=== PATIENT | female | born 1935 | race Caucasian/White ===

== ENCOUNTER → 2018-09-04 | Outpatient (CLI) | payer MEDICARE, BC ==
[2017-01-09 16:56] VITALS: BMI 24.4
[~2018-09-04] MED LIST: ALE70 PO; ASPI-715 PO; CEFU250T11 PO; CHOL10005 PO; DAR100 PO; DOCU-202 PO; EZET10TA41 PO; GLUC500C29 PO; IBAN150T6 PO; LEVO25TA56 PO; MULT-820 PO; NIA100 PO; ONDA4TAB PO; OXYC-373 PO; OXYC-865 PO; PER PO; RALO60TA12 PO; SIMV-42 PO; TRIVITAMIN50 ML PO; VITA100014 PO; ZOL5 PO
--- NOTE | 2018-09-04 09:04 | RADIOLOGY IMAGING REPORT ---
FACILITY: [facility] - [place] PATIENT NAME: Kristina Puentes : 1935 MR: [id number] V: [id number] EXAM DATE: ORDERING PHYSICIAN: CHELI LEONARD TECHNOLOG[place] [facility] [place] : 1935 Visit/Account:[id number] Date of Sevice: 09/04/2018 BONE DENSITY Additional Pertinent history: Osteoporosis screening COMPARISON STUDIES: 06/03/2014 FINDINGS: LUMBAR SPINE: The bone mineral density (BMD) measured from L1-L2 correlates with a Z-score of 0.3 and a T-score of -1.5 which is osteopenia as defined by the World Health Organization. The corresponding risk of fract ure in the lumbar spine is increased 3 times compared with a young adult reference population. This v alue has increased by 2.6% since the prior study. More than 5% change is considered significant. HIP: Bone mineral density (BMD) measured in the left total hip correlates with a Z-score of 0.6 and a T-s core of -1.6 which is osteopenia as defined by the World Health Organization. The corresponding risk of fracture in the hip is increased 3-4 times compared with a young adult reference population. Total hip value has decreased by 2.3% since the prior study. More than 5% change is considered significant . Bone mineral density (BMD) measured in the left femoral neck region measures 0.76 g/cm2. IMPRESSION: 1. Lumbar spine: Osteopenia. No significant change. 2. Left hip: Osteopenia. Total hip value has shown no significant change. Left femoral neck: bone mineral density is 0.76 g/cm2 FRAX WHO Fracture Risk Assessment Tool link: http://www.mirian.ac.uk/FRAX/index.jsp The next DEXA scan of this patient should include the following sites: L1-L2 and left hip PLEASE NOTE: 1. The World Health Organization defines low BMD as follows: T-score Normal > -1 Osteopenia -1 to -2.5 Osteoporosis < -2.5 without fractures Established osteoporosis < -2.5 with fractures 2. In general, you may wish to consider: Diagnosis Treatment Follow-up DEXA Normal BMD Prevention 2-3 years Osteopenia Prevention/therapy 1-2 years Osteoporosis Therapy Yearly 3. Fracture risk estimated from the T-score is more accurate for vertebral fractures (often spontaneo us) than for hip fractures. Report Dictated By: Travis Montano MD at 09/04/2018 8:57 AM Report E-Signed By: Travis Montano MD at 09/04/2018 9:00 AM WSN:[id number]
--- NOTE | 2018-09-04 16:50 | RADIOLOGY IMAGING REPORT ---
[place] [facility] [place] NAME: JULIUS ROMO : [id number] MR: [id number] V: [id number] EXAM DATE: ORDERING PHYSICIAN: CHELI LEONARD TECHNOLOGIST: Keyona Ham PROCEDURE:BILATERAL DIGITAL SCREENING MAMMOGRAM WITH CAD ASSISTED INTERPRETATION & 3D TOMOSYNTHESIS COMPARISON:Prior mammograms 06/03/14, 03/01/12. INDICATIONS:SCREENING FINDINGS: The breasts are heterogeneously dense which can obscure small masses. The parenchymal pattern has remained stable allowing for difference in mammographic technique & patient positioning. DIAGNOSTIC CATEGORY 1--NEGATIVE. RECOMMENDATIONS: ROUTINE MAMMOGRAM AND CLINICAL EVALUATION. IMPRESSION: BIRADS 1: Negative. No significant abnormality is seen. Dictated by: Latanya Cuenca M.D. on 09/04/2018 at 9:15 Transcribed by: SHERLEY on 09/04/2018 at 11:57 Approved by: Latanya Cuenca M.D. on 09/04/2018 at 16:49 [facility]
== END ==
LOC: MAMO 01:34
PROVIDERS: ATTEND Nurse Practitioner Family
DX: Z12.31 Encounter for screening mammogram for malignant neoplasm of breast (principal); M85.89 Other specified disorders of bone density and structure, multiple sites
CPT/HCPCS: 77063; 77067; 77080

== ENCOUNTER 2018-10-10 09:08 | Inpatient (IN) | payer MEDICARE, BC ==
[2017-01-09 16:56] VITALS: Ht 162.6 cm; Wt 72.3 kg
[~2018-10-10] VITALS: Ht 162.6 cm; Wt 72.3 kg
[2018-10-10] VITALS (7 sets, daily range): BP systolic 123–172; BP diastolic 49–77
[~2018-10-10 09:08] MED LIST changes: +IBAN150T16 PO; -IBAN150T6 PO
[2018-10-10] MEDS ORDERED: MOM PO (09:20)
--- NOTE | 2018-10-10 09:24 | ER Report ---
History and Physical Time Seen By MD: 09:16 HPI/ROS s/p colostomy 2 years ago. Past two days with increasing nausea and b/l upper quadrant abdominal pain. No fever/chills. No sick contacts. No trauma. No diarrhea. No chest pain or SOB. Colostomy has been normal amount of stool. No ETOH. No lower abdominal pain or dysuria. Remainder of the 14 system rev: Yes Allergies: Coded Allergies: No Known Drug Allergies (Verified , 10/10/18) Home Meds Active Scripts Docusate Sodium (DOCUSATE SODIUM) 100 Mg Capsule, 1 CAP PO BID, #30 CAPSULE 0 Refills Prov:DOUG RUBIN MD 11/22/16 Reported Medications Magnesium Hydroxide (MILK OF MAGNESIA) 400 Mg/5 Ml Oral.susp, 400 MG PO, BOTTLE 10/10/18 Cholecalciferol (Vitamin D3) (VITAMIN D3) 1,000 Unit Tablet, 2000 UNIT PO QDAY, TAB 01/08/17 Ezetimibe (ZETIA) 10 Mg Tablet, 10 MG PO QDAY, TAB 10/22/16 Raloxifene Hcl (EVISTA) 60 Mg Tablet, 60 MG PO QDAY 10/22/16 Multivitamins (Multivitamin) 1 Tab Tablet, 1 TAB PO DAILY 10/11/11 Aspirin (Aspirin) 81 Mg Tablet.dr, 81 MG PO DAILY, 0 Refills 03/09/09 Zolpidem Tartrate (Ambien) 5 Mg Tab, 5 MG PO QHS PRN, 0 Refills 03/09/09 Levothyroxine Sodium (Synthroid) 25 Mcg Tablet, 88 MCG PO QDAY, 0 Refills 03/09/09 Reviewed Nurses Notes: Yes Old Medical Records Reviewed: Yes Hx Smoking: No Smoking Status: Former Smoker Exposure to Second Hand Smoke?: No Hx Substance Use Disorder: No Hx Alcohol Use: Yes Constitutional Vital Sign - Last 24 Hours 10/10/18 09:12 Temp 98.3 Pulse 73 Resp 20 B/P (MAP) 186/81 Pulse Ox 96 O2 Delivery Room Air Physical Exam General Appearance: The patient is alert, has no immediate need for airway protection and no current signs of toxicity. Eyes: Pupils equal and round no injection. Respiratory: Chest is non tender, lungs are clear to auscultation. Cardiac: regular rate and rhythm, systolic murmur present Gastrointestinal: Abdomen is soft with TTP of the midepigastric region. Normal colostomy with stool noted. Extremities have full range of motion and are non tender. Skin: No rashes or lesions. DIFFERENTIAL DIAGNOSIS: After history and physical exam differential diagnosis was considered for abdominal pain including but not limited to appendicitis, cholecystitis, gastritis and pancreatitis Medical Decision Making Data Points Result Diagram: 10/10/1824 10/10/18 0924 Laboratory Hematology Test 10/10/18 09:24 Red Blood Count 4.89 M/uL (4.17-5.56) Mean Corpuscular Volume 98.3 fL (80.0-96.0) Mean Corpuscular Hemoglobin 33.2 pg (26.0-33.0) Mean Corpuscular Hemoglobin Concent 33.7 g/dL (32.0-36.0) Red Cell Distribution Width 12.3 % (11.5-14.5) Mean Platelet Volume 8.0 fL (7.2-11.1) Neutrophils (%) (Auto) 92.2 % (39.4-72.5) Lymphocytes (%) (Auto) 3.3 % (17.6-49.6) Monocytes (%) (Auto) 3.3 % (4.1-12.4) Eosinophils (%) (Auto) 0.0 % (0.4-6.7) Basophils (%) (Auto) 1.2 % (0.3-1.4) Nucleated RBC Relative Count (auto) 0.0 /100WBC Neutrophils # (Auto) 9.4 K/uL (2.0-7.4) Lymphocytes # (Auto) 0.3 K/uL (1.3-3.6) Monocytes # (Auto) 0.3 K/uL (0.3-1.0) Eosinophils # (Auto) 0.0 K/uL (0.0-0.5) Basophils # (Auto) 0.1 K/uL (0.0-0.1) Nucleated RBC Absolute Count (auto) 0.00 K/uL Sodium Level 138 mmol/L (137-145) Potassium Level 3.3 mmol/L (3.5-5.0) Chloride Level 101 mmol/L (98-107) Carbon Dioxide Level 24 mmol/L (22-31) Blood Urea Nitrogen 26 mg/dl (7-18) Creatinine 1.00 mg/dl (0.52-1.04) Glomerular Filtration Rate Calc 52.7 Random Glucose 197 mg/dl (75-110) Calcium Level 11.2 mg/dl (8.4-10.2) Total Bilirubin 0.6 mg/dl (0.2-1.3) Aspartate Amino Transf (AST/SGOT) 33 U/L (0-35) Alanine Aminotransferase (ALT/SGPT) 22 U/L (0-56) Alkaline Phosphatase 102 U/L (0-126) Total Protein 7.8 g/dl (6.3-8.2) Albumin 4.7 g/dl (3.5-5.0) Lipase 73 U/L (23-300) Chemistry Test 10/10/18 09:24 White Blood Count 10.2 k/uL (4.5-11.0) Red Blood Count 4.89 M/uL (4.17-5.56) Hemoglobin 16.2 g/dL (12.0-16.0) Hematocrit 48.0 % (34.0-47.0) Mean Corpuscular Volume 98.3 fL (80.0-96.0) Mean Corpuscular Hemoglobin 33.2 pg (26.0-33.0) Mean Corpuscular Hemoglobin Concent 33.7 g/dL (32.0-36.0) Red Cell Distribution Width 12.3 % (11.5-14.5) Platelet Count 270 K/uL (150-450) Mean Platelet Volume 8.0 fL (7.2-11.1) Neutrophils (%) (Auto) 92.2 % (39.4-72.5) Lymphocytes (%) (Auto) 3.3 % (17.6-49.6) Monocytes (%) (Auto) 3.3 % (4.1-12.4) Eosinophils (%) (Auto) 0.0 % (0.4-6.7) Basophils (%) (Auto) 1.2 % (0.3-1.4) Nucleated RBC Relative Count (auto) 0.0 /100WBC Neutrophils # (Auto) 9.4 K/uL (2.0-7.4) Lymphocytes # (Auto) 0.3 K/uL (1.3-3.6) Monocytes # (Auto) 0.3 K/uL (0.3-1.0) Eosinophils # (Auto) 0.0 K/uL (0.0-0.5) Basophils # (Auto) 0.1 K/uL (0.0-0.1) Nucleated RBC Absolute Count (auto) 0.00 K/uL Glomerular Filtration Rate Calc 52.7 Calcium Level 11.2 mg/dl (8.4-10.2) Total Bilirubin 0.6 mg/dl (0.2-1.3) Aspartate Amino Transf (AST/SGOT) 33 U/L (0-35) Alanine Aminotransferase (ALT/SGPT) 22 U/L (0-56) Alkaline Phosphatase 102 U/L (0-126) Total Protein 7.8 g/dl (6.3-8.2) Albumin 4.7 g/dl (3.5-5.0) Lipase 73 U/L (23-300) ED Course/Re-evaluation ED Course 83-year-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 Currently with a left sided diverting colostomy in place. She presented to the emergency department with epigastric and bilateral upper quadrant pain with nausea and vomiting. No fever chills. CT scan shows a dilated gallbladder with a thickened wall, a stone in the gallbladder, and pericholecystic fluid. CBD not fully seen/evaluated. Spoke with Dr. Narvaez at 11:15. He will admit the patient for a likely cholcystectomy. She has been given Zosyn, and is aware of the findings. Decision to Disposition Date: Oct 10, 2018 Decision to Disposition Time: 11:31 Depart Departure Latest Vital Signs Vital Signs Date Time Temp Pulse Resp B/P (MAP) Pulse Ox O2 Delivery O2 Flow Rate FiO2 10/10/18 09:12 98.3 73 20 186/81 96 Room Air Impression: Primary Impression: Cholecystitis, acute with cholelithiasis Condition: Improved Disposition: Admitted from ER Referrals: CHELI LEONARD (PCP) Problem Qualifiers Primary Impression: Cholecystitis, acute with cholelithiasis Biliary obstruction: without biliary obstruction Qualified Codes: K80.00 - Calculus of gallbladder with acute cholecystitis without obstruction ADELIA KNIGHT MD Oct 10, 2018 09:24
[2018-10-10] MEDS ORDERED: ONDANSETRON 4 MG/2 ML VIAL IVP ONE (09:45)
[2018-10-10] MEDS ORDERED: NS(*) 0.9% 500 ML BAG 500 ML IV ONE (09:45)
[2018-10-10 09:51] LABS: PLATELET COUNT, AUTOMATED 270 K/uL (150-450)
[2018-10-10] MEDS ORDERED: IOPAMIDOL 76% 150 ML INFUS BTL 0 ML ONE (10:04)
[2018-10-10] MEDS ORDERED: IOPAMIDOL 76% 150 ML INFUS BTL 150 ML ONE (10:13)
--- NOTE | 2018-10-10 11:06 | RADIOLOGY IMAGING REPORT ---
[place] [facility] [place] NAME: Kristina Puentes : 1935 MR: [id number] V: [id number] EXAM DATE: ORDERING PHYSICIAN: ADELIA KNIGHT TECHNOLOGIST: Location: [facility] Patient: Kristina Puentes : 1935 Visit/Account:[id number] Date of Sevice: 10/10/2018 CT ABDOMEN PELVIS W/ CON HISTORY:s/p colostomy with upper abdominal pain, n/v TECHNIQUE: CT abdomen and pelvis with intravenous contrast. Contiguous axial images of the abdomen and pelvis was performed from the lung bases to the symphysis pubis. One of the following dose optimization techniques was utilized in the performance of this exam: Autom ated exposure control; adjustment of the mA and/or kV according to the patient's size; or use of an i terative reconstruction technique. Specific details can be referenced in the facility's radiology C T exam operational policy. CONTRAST: 75 cc of Isovue-370 COMPARISON: 01/08/2017 FINDINGS: Visualized lung bases: Stable 3 mm right lower lobe micronodule is noted. Some atelectasis is noted at the left lung base new from prior exam. Calcified left for lobe granuloma is stable. Patient jean s a small hiatal hernia. Hepatobiliary: There is fatty infiltration of liver. Scattered benign hepatic cysts are noted the l argest in segment 5 of liver measures 9 mm. Gallbladder is distended with gallbladder wall thickening and pericholecystic inflammation suggesting cholecystitis. Gallstones noted in gallbladder. Intrahepatic bile ducts are nondilated but the common bile duct measures 7 mm. I cannot exclude some tiny distal common bile duct stone on the coronal images. Spleen: Small hypodensity in the spleen is stable and likely benign. Adrenals: Negative. Kidneys/: Small left renal cortical cyst is noted. Pancreas: Negative. GI: Postoperative changes are noted from a left lower quadrant colostomy. Prominent parastomal jose ia is noted with numerous small bowel loops. I cannot exclude an incarcerated hernia and recommend c orrelation with physical exam. Vessels/spaces/nodes: Abdominal aorta is ectatic and mildly atherosclerotic. Bones/soft tissues: Patient has a scoliosis with degenerative changes. IMPRESSION: 1. Acute cholecystitis with significant thickening and inflammation of the gallbladder wall. A gall stone is noted in the gallbladder. 2. Common bile duct measures 7 mm. I cannot exclude small distal common bile duct stones. 3. Diverting left for quadrant colostomy. There is a prominent parastomal hernia with small bowel l oops the defect. I cannot exclude incarceration and recommend correlation with physical examination to see if the small bowel loops are reducible. Results were called to ADELIA KNIGHT at 10/10/2018 11:01 AM. Report Dictated By: Mike Edgar MD at 10/10/2018 10:49 AM Report E-Signed By: Mike Edgar MD at 10/10/2018 11:02 AM WSN:[id number]
[2018-10-10] MEDS ORDERED: PIPERACILLIN/TAZO*3.375GM VIAL 3.375 GM in NS(*) 0.9% 100 ML MINI-BAG 100 ML IVPB ONE (11:25)
[2018-10-10] MEDS ORDERED: DOCUSATE SODIUM 100 MG CAP PO ONE (11:35)
[2018-10-10] MEDS ORDERED: FLUSH 10 ML SYR IVP PRN (13:15)
[2018-10-10] MEDS ORDERED: MORPHINE 2 MG/ML SYR IVP PRN (13:15)
[2018-10-10] MEDS ORDERED: ONDANSETRON 4 MG/2 ML VIAL IVP PRN (13:15)
--- NOTE | 2018-10-10 13:25 | Gen Surgery History & Physical ---
History of Present Illness Chief Complaint RUQ abdominal pain History of Present Illness 83yo male presents with 1 day of RUQ abdominal pain with nausea. It worsened overnight and so she came in to the ER where a CT is c/w acute cholecystitis. She has had multiple abdominal surgeries, mostly in her lower abdomen. She had a hysterectomy with SB injury and then ultimately required a sigmoid colectomy and colostomy to treat a fistula. Her last surgery was in January of 2017. She is being admitted for further treatment of her cholecystitis. 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 (6) S/P HEATHER-BSO Status: Chronic (7) Hx of total knee arthroplasty Status: Chronic (8) Hx of tubal ligation Status: Chronic (9) Hx of bilateral cataract extraction Status: Chronic Home Meds Active Scripts Docusate Sodium (DOCUSATE SODIUM) 100 Mg Capsule, 1 CAP PO BID, #30 CAPSULE 0 Refills Prov:DOUG RUBIN MD 11/22/16 Reported Medications Magnesium Hydroxide (MILK OF MAGNESIA) 400 Mg/5 Ml Oral.susp, 400 MG PO, BOTTLE 10/10/18 Cholecalciferol (Vitamin D3) (VITAMIN D3) 1,000 Unit Tablet, 2000 UNIT PO QDAY, TAB 01/08/17 Ezetimibe (ZETIA) 10 Mg Tablet, 10 MG PO QDAY, TAB 10/22/16 Raloxifene Hcl (EVISTA) 60 Mg Tablet, 60 MG PO QDAY 10/22/16 Multivitamins (Multivitamin) 1 Tab Tablet, 1 TAB PO DAILY 10/11/11 Aspirin (Aspirin) 81 Mg Tablet.dr, 81 MG PO DAILY, 0 Refills 03/09/09 Zolpidem Tartrate (Ambien) 5 Mg Tab, 5 MG PO QHS PRN, 0 Refills 03/09/09 Levothyroxine Sodium (Synthroid) 25 Mcg Tablet, 88 MCG PO QDAY, 0 Refills 03/09/09 Allergies: Coded Allergies: No Known Drug Allergies (Verified , 10/10/18) Patient History: FH: CVA (cerebrovascular accident) FATHER FH: breast cancer MOTHER FH: emphysema FATHER FH: lung cancer MOTHER FH: uterine cancer MOTHER Glomerulonephritis FATHER Review of Systems All Systems Reviewed/Normal: Yes, Except as Noted Gastrointestinal: Nausea, Abdominal Pain Exam General Appearance: Alert, Awake, No Acute Distress, Afebrile Neuro: No Gross deficits Eyes: PERRLA GI: Other (Soft, RUQ TTP with Huertas's sign. Stoma in left mid abdomen. Well healed lower abdominal vertical midline scar.) Extremities: Warm, Perfused Psych: Alert & Oriented X3, Appropriate Mood & Affect Medical Decision Making Data Points Result Diagram: 10/10/1892310/10/18923 Assessment and Plan Problems: (1) Cholecystitis, acute with cholelithiasis Status: Acute Assessment & Plan: 10/10/18: Will admit, NPO, IV fluids, IV abx. Will plan on surgery tonight cholecystitis. Will start laparoscopically in RUQ but may have to convert to open surgery given her previous abdominal surgeries but I'm hopeful there won't be much in the way of adhesions in the RUQ since she's had no previous surgeries in this area. If the infection/inflammation in/around her gallbladder is severe, this may necessitate conversion to open surgery as well. She seems to understand this discussion and her questions have been answered. PAR discussion completed at this time as well. Pt wishes to proceed with this plan, including surgery. Condition Stable. Time Spent: < 30 min Venous Thromboembolism VTE Risk Physician Assess for VTE Risk: Yes Patient's VTE Risk: Low VTE Diagnostic Test 2 Days Prior to Admit: No Antithrombotics Is Pt On Any Antithrombotics?: No Problem Qualifiers (1) Cholecystitis, acute with cholelithiasis: Biliary obstruction: without biliary obstruction Qualified Codes: K80.00 - Calculus of gallbladder with acute cholecystitis without obstruction DOUG RUBIN MD Oct 10, 2018 13:25
[2018-10-10] MEDS: NS(*) 0.9% 1000 ML BAG 1,000 ML IV PRN (13:44)
[2018-10-10] MEDS ORDERED: NORMOSOL R SOLN(*) 1000 ML BAG 1,000 ML IV ONE (16:00)
[2018-10-10] MEDS ORDERED: FAMOTIDINE(*) 20MG/50ML PREMIX 50 ML IVPB ONE (16:00)
[2018-10-10] MEDS ORDERED: IOPAMIDOL 61% 75 ML INFUS BTL 75 ML ONE (18:33)
[2018-10-10] MEDS ORDERED: ROPIVACAINE 0.5% 20 ML VIAL ONE (18:33)
[2018-10-10] MEDS ORDERED: ROCURONIUM BROM 10 MG/ML 10 ML ONE (19:02)
[2018-10-10] MEDS ORDERED: ONDANSETRON 4 MG/2 ML VIAL ONE (19:02)
[2018-10-10] MEDS ORDERED: DEXAMETHASONE SOD PHOS 10MG/ML ONE (19:02)
[2018-10-10] MEDS ORDERED: PROPOFOL EMUL(*) 10MG/ML 20 ML 20 ML ONE (19:02)
[2018-10-10] MEDS ORDERED: SUCCINYLCHOL CHL 200MG/10ML VL ONE (19:02)
[2018-10-10] MEDS: PIPERACILLIN/TAZO*3.375GM VIAL 3.375 GM in NS(*) 0.9% 100 ML MINI-BAG 100 ML IVPB SCH (19:26)
[2018-10-10] MEDS ORDERED: fentaNYL CITR 100 MCG/2 ML AMP ONE ×3 (19:27→21:00)
--- NOTE | 2018-10-10 21:55 | Post Operative Progress Note ---
Post Operative Progress Note Date: Oct 10, 2018 Time: 21:41 Surgeon: Radha Dictation number: [id number] Anesthesia: GETA by Dr. Ponce Pre-Op Diagnosis: Acute cholecystitis Post-Op Diagnosis: AIME Findings: Extensive adhesions throughout abdominal midline from falciform ligament to pelvis Cholangiogram without filling defect but common duct system was very dilated although contrast flowed into duodenum without problems or resistance. Procedure(s): Laparoscopic adhesiolysis Laparoscopic cholecystectomy with cholangiogram Specimen Removed:(May be N/A): Gallbladder and contents Complications: None Fluids: See anesthesia record Estimated Blood Loss: Minimal Date OP Note Dictated: Oct 10, 2018 Time OP Note Dictated: 21:43 DOUG RUBIN MD Oct 10, 2018 21:55
[2018-10-10 22:18] LABS: PLATELET COUNT, AUTOMATED 240 K/uL (150-450)
--- NOTE | 2018-10-10 23:42 | RADIOLOGY IMAGING REPORT ---
FACILITY: [facility] PATIENT NAME: Kristina Puentes : 1935 MR: [id number] V: [id number] EXAM DATE: ORDERING PHYSICIAN: DOUG RUBIN TECHNOLOGIST: Location: [facility] Patient: Kristina Puentes : 1935 Visit/Account:[id number] Date of Sevice: 10/10/2018 C-ARM FLUORO 1 HR Indication: Cholangiogram for ductal dilation and possible stones. Procedure: Fluoroscopic guidance was provided for Dr. Rubin. Fluoroscopy dose: 0.3786 Gycm2 dose area product Findings: There are surgical clips in the right upper quadrant from cholecystectomy. There is cannula tion and opacification of the cystic duct remnant and of the dilated common and intrahepatic ducts. N o ductal filling defect. Contrast flows freely into the duodenum. Please see the operative report saira t is dictated separately. IMPRESSION: Fluoroscopy was provided. Report Dictated By: Ellen Whitfield at 10/10/2018 11:37 PM Report E-Signed By: Ellen Whitfield at 10/10/2018 11:39 PM WSN:[id number]
--- NOTE | 2018-10-10 23:46 | OPERATIVE REPORT 1 ---
EVENT DATE: October 10, 2018 SURGEON: Smith Garcia MD ANESTHESIOLOGIST: Ramiro Ponce MD ANESTHESIA: General endotracheal anesthesia. PREOPERATIVE DIAGNOSIS Acute cholecystitis. POSTOPERATIVE DIAGNOSIS Acute cholecystitis. PROCEDURES PERFORMED 1. Laparoscopic adhesiolysis. 2. Laparoscopic cholecystectomy with intraoperative cholangiogram. COMPLICATIONS None. CONDITION Stable. BLOOD LOSS Minimal. FINDINGS This patient had pretty extensive intra-abdominal adhesions from her previous surgeries, but I was able to take these down rather easily to create enough room to complete the cholecystectomy. The gallbladder was markedly inflamed and had multiple stones within it. Her common bile duct and common hepatic duct were very dilated, but I did not see any stones or any obstruction. I observed contrast flow into the duodenum, and I also observed contrast flow up into the intrahepatic biliary system. SPECIMENS Gallbladder and contents. INDICATIONS This is an 83-year-old female who presented to the Emergency Room with a one-day history of right upper quadrant abdominal pain, and a CT scan was consistent with acute cholecystitis. She provided consent for a laparoscopic cholecystectomy. DESCRIPTION OF PROCEDURE Patient was brought to the operating room and placed supine on the operating table. General endotracheal anesthesia was administered, and her abdomen was prepped and draped in a sterile fashion. 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 I insufflated the abdominal cavity to a pressure of 15 mmHg. After this was completed, I inserted the 5 mm optical trocar with a camera in and focused into the insufflated abdomen. I then removed the trocar and left the port in place and inserted the 30-degree angle, 5 mm scope into the abdomen through this port without any problems. I inspected the abdominal cavity and noted the gallbladder was very inflamed. There were quite a bit of adhesions along the midline from the falciform ligament all the way down into the pelvis. I did see the colostomy from the peritoneal side, and I could see the large fascial defect, but there was nothing herniated through this at the time of surgery in a large part because of the insufflated abdomen. Next, I put in another 5 mm port in the right mid abdomen, and using these two ports, I was able to take down a lot of the midline adhesions with hot scissors. As I created more space, I inserted a 5 mm port just to the right of epigastric midline and then ultimately cleaned off around deep to the umbilicus. At this point after injecting the periumbilical skin with 0.5% ropivacaine plain, I made a vertically oriented incision around the right side of the abdomen right through her previous midline scar. I dissected through the dermis and subcutaneous fat. I identified the midline fascia, and then with the camera in observing this area, I was able to enter the peritoneal cavity through the midline fascia. I then placed two interrupted 0 Vicryl sutures transversely through this vertical fascial defect and then inserted the Esequiel 12 mm port through this wound and secured it in place with sutures. Next, the rest of the case proceeded like a fairly typical laparoscopic cholecystectomy for severe cholecystitis. Patient was placed in Trendelenburg and planed towards her left and removed the viscera from the right upper quadrant. I could not grab the gallbladder because it was too thickened and too full, and so I used laparoscopic evacuation needle and sucked out the bile, and this decompressed the gallbladder and allowed me to grasp it. I retracted the fundus towards the patient's right shoulder, and there were quite a bit of adhesions to the gallbladder, which I had to take down with traction/countertraction using hook electrocautery. Once I got down to the infundibulum, I was able to retract this towards the patient's right hip and then clean off the cystic duct and cystic artery. The artery was clipped proximally and distally and divided between clips, and the duct was cleaned off circumferentially, and then I cleared the infundibular-cystic duct junction. I made a ductotomy just distal to the clip and inserted the Lorenz clamp at the cholangiocatheter end and inserted it into the cystic duct without any problems and then clamped it in place. I then completed a cholangiogram, which revealed that I was in the cystic duct away from the common duct, but I could clearly see the common bile duct and common hepatic duct as well as the intrahepatic biliary system, and I observed contrast flowing into the duodenum, and there were no apparent filling defects. The common duct system was very dilated. I then terminated the cholangiogram and then clipped the cystic duct distal to the ductotomy with three clips and then completed division of the cystic duct. I then divided the posterior attachment of the gallbladder and it from the gallbladder fossa. When this was completely, it was placed in the surgical specimen retrieval bag and removed from the abdomen through the umbilical port site. The removal of the gallbladder from the gallbladder fossa was somewhat challenging because of the degree of inflammation of the gallbladder. The gallbladder fossa was fairly oozy with diffuse oozing, and this was controlled with electrocautery. Once it was controlled, I covered the entire gallbladder fossa with Surgicel and then coated it with Arixtra hemostatic powder. I irrigated and dried the right upper quadrant except for the gallbladder fossa so as not to disrupt the hemostatic agent, and I removed all the irrigation fluid. There was no further bleeding. Everything looked nice and dry. The cystic duct and artery stump clips were intact, and there was no evidence of bleeding or bile leak at the end of this case. I desufflated the abdomen and removed the ports, and then I closed the midline fascia at the umbilicus with a running 0 Vicryl suture and tied all three of these down with good reapproximation of the fascial edges and no remaining fascial defect. I then closed the skin incision at each port site with 4-0 Monocryl subcuticular sutures. The skin was cleaned and dried, and Steri-Strips were applied, followed by sterile surgical dressings. Patient was then awakened, extubated in the operating room, and transported to the recovery room in stable condition having tolerated the procedure without any apparent problems. AC
[2018-10-11] VITALS (14 sets, daily range): BP systolic 99–155; BP diastolic 42–98
[2018-10-11] MEDS: PIPERACILLIN/TAZO*3.375GM VIAL 3.375 GM in NS(*) 0.9% 100 ML MINI-BAG 100 ML IVPB SCH ×4 (00:11→17:27)
[2018-10-11] MEDS: NS(*) 0.9% 1000 ML BAG 1,000 ML IV PRN (04:52)
[2018-10-11] MEDS: LEVOTHYROXINE SOD 0.088 MG TAB PO SCH (06:02)
[2018-10-11] MEDS ORDERED: traMADol 50 MG TAB PO PRN (08:00)
[2018-10-11] MEDS ORDERED: ZOLPIDEM TARTRATE 5 MG TAB PO PRN (08:00)
[2018-10-11] MEDS ORDERED: NS(*) 0.9% 1000 ML BAG 1,000 ML IV PRN (08:00)
[2018-10-11] MEDS ORDERED: INSULIN HUM LISPRO 100 UN/ML 3 ML VIAL SUBQ PRN (08:00)
--- NOTE | 2018-10-11 08:11 | General Surgery Progress Note ---
Subjective Progress Notes Subjective No complaints this morning. Feeling much better when compared to preop. Physical Exam Vital Signs Date Time Temp Pulse Resp B/P (MAP) Pulse Ox O2 Delivery O2 Flow Rate FiO2 10/11/18 06:00 63 132/63 (86) 94 Nasal Cannula 2.0 10/11/18 04:00 98.8 10/10/18 22:35 16 Intake and Output 10/11/18 07:00 Intake Total 3210 ml Balance 3210 ml Intake IV Total 3210 ml # Voids 4 # Bowel Movements 1 General Appearance: Alert, Awake, No Acute Distress, Afebrile GI: Other (Soft, appropriate postop TTP, dressings C/D/I) Extremities: Warm, Perfused Result Diagram: 10/10/18215410/10/182154 Assessment and Plan Problems: (1) Cholecystitis, acute with cholelithiasis Status: Acute Assessment & Plan: 10/10/18: Will admit, NPO, IV fluids, IV abx. Will plan on surgery tonight cholecystitis. Will start laparoscopically in RUQ but may have to convert to open surgery given her previous abdominal surgeries but I'm hopeful there won't be much in the way of adhesions in the RUQ since she's had no previous surgeries in this area. If the infection/inflammation in/around her gallbladder is severe, this may necessitate conversion to open surgery as well. She seems to understand this discussion and her questions have been answered. PAR discussion completed at this time as well. Pt wishes to proceed with this plan, including surgery. 10/11/18: POD#1 s/p lap adhesiolysis/cholecystectomy. Doing well. Will start diet today. Start home meds. Will follow blood sugars, may need to ask hospitalist to evaluate if sugars remain elevated. Hold off on blood thinners due to oozing during surgery from liver bed. Continue abx until tomorrow. H2 olivia for GI prophylaxis. Ambulate today, IS, aggressive pulmonary hygiene. Pt advised to stay out of bed as much as possible today. Hopefully home tomorrow. (2) Hyperglycemia Status: Acute Assessment & Plan: Will follow blood sugars and if consistently elevated will ask hospitalist to evaluate patient for possible diabetes. Condition Stable. Time Spent: < 30 min Exam Sepsis Risk: No Definite Risk Problem Qualifiers (1) Cholecystitis, acute with cholelithiasis: Biliary obstruction: without biliary obstruction Qualified Codes: K80.00 - Calculus of gallbladder with acute cholecystitis without obstruction DOUG RUBIN MD Oct 11, 2018 08:11
[2018-10-11 08:17] LABS: PLATELET COUNT, AUTOMATED 215 K/uL (150-450)
[2018-10-11] MEDS ORDERED: DOCUSATE SODIUM 100 MG CAP PO SCH (09:00)
[2018-10-11] MEDS ORDERED: PANTOPRAZOLE SOD 40 MG IV VIAL IVP SCH (09:00)
[2018-10-11] MEDS ORDERED: MAGNESIUM HYDROXIDE* 30ML UDCP PO SCH (09:00)
[2018-10-11] MEDS: CHOLECALCIFEROL 1000 UNIT TAB PO SCH (09:16)
[2018-10-11] MEDS: ASPIRIN 81 MG ENTERIC COATED PO SCH (09:17)
[2018-10-11] MEDS: FAMOTIDINE 20 MG TAB PO SCH ×2 (09:17→20:40)
[2018-10-11] MEDS: RALOXIFENE HCL 60 MG TAB PO SCH (09:17)
[2018-10-11] MEDS: EZETIMIBE 10 MG TAB PO SCH (09:17)
[2018-10-11] MEDS: MULTIVITAMINS TAB PO SCH (09:17)
[2018-10-11] MEDS ORDERED: DOCU-416 PO (15:34)
[2018-10-11] MEDS ORDERED: LEVO-3 PO (15:34)
[2018-10-11] MEDS: DOCUSATE SODIUM 100 MG CAP PO SCH (20:44)
[2018-10-11] MEDS: MAGNESIUM OXIDE 500 MG PO SCH (20:45)
[2018-10-11] MEDS: ACETAMINOPHEN 325 MG TAB PO PRN (20:45)
[2018-10-12 00:07] VITALS: BP 125/60
[2018-10-12] MEDS: PIPERACILLIN/TAZO*3.375GM VIAL 3.375 GM in NS(*) 0.9% 100 ML MINI-BAG 100 ML IVPB SCH ×2 (00:10→05:33)
[2018-10-12 04:35] VITALS: BP 118/68
[2018-10-12] MEDS: ACETAMINOPHEN 325 MG TAB PO PRN (04:48)
[2018-10-12] MEDS: LEVOTHYROXINE SOD 0.088 MG TAB PO SCH (05:33)
[2018-10-12 07:08] VITALS: BP 131/66
[2018-10-12] MEDS ORDERED: ONDA4TAB9 PO (08:27)
--- NOTE | 2018-10-12 08:37 | Short(Outpt) Discharge Summary ---
Discharge Summary Reason for Hosp/Final Diag: (1) Cholecystitis, acute with cholelithiasis Status: Acute Hospital Course & Plan: 10/10/18: Will admit, NPO, IV fluids, IV abx. Will plan on surgery tonight cholecystitis. Will start laparoscopically in RUQ but may have to convert to open surgery given her previous abdominal surgeries but I'm hopeful there won't be much in the way of adhesions in the RUQ since she's had no previous surgeries in this area. If the infection/inflammation in/around her gallbladder is severe, this may necessitate conversion to open surgery as well. She seems to understand this discussion and her questions have been answered. PAR discussion completed at this time as well. Pt wishes to proceed with this plan, including surgery. 10/11/18: POD#1 s/p lap adhesiolysis/cholecystectomy. Doing well. Will start diet today. Start home meds. Will follow blood sugars, may need to ask hospitalist to evaluate if sugars remain elevated. Hold off on blood thinners due to oozing during surgery from liver bed. Continue abx until tomorrow. H2 olivia for GI prophylaxis. Ambulate today, IS, aggressive pulmonary hygiene. Pt advised to stay out of bed as much as possible today. Hopefully home tomorrow. 10/12/18: POD#2. Doing well. Tolerating diet. Dressings removed, incisions look good without erythema or drainage. Pt getting up and around without problems. Will d/c to home this morning. (2) Hyperglycemia Status: Acute Hospital Course & Plan: Will follow blood sugars and if consistently elevated will ask hospitalist to evaluate patient for possible diabetes. Departure Discharge to: Home, Self Care Discharge Instructions Home Meds Active Scripts Ondansetron 4 Mg Odt (ONDANSETRON 4 MG ODT) 4 Mg Tab.rapdis, 1 TAB.MICHAEL PO BID PRN for NAUSEA, #20 TAB 0 Refills Prov:DOUG RUBIN MD 10/12/18 Reported Medications Docusate Sodium (COLACE) 100 Mg Capsule, 2 CAP PO BID, CAPSULE 10/11/18 Levothyroxine Sodium (LEVOTHYROXINE SODIUM) 100 Mcg Tablet, 100 MCG PO QDAY, TAB 10/11/18 Magnesium Hydroxide (MILK OF MAGNESIA) 400 Mg/5 Ml Oral.susp, 400 MG PO BID, BOTTLE TAKES WITH DOCUSATE SODIUM 10/10/18 Cholecalciferol (Vitamin D3) (VITAMIN D3) 1,000 Unit Tablet, 2000 UNIT PO QDAY, TAB 01/08/17 Ezetimibe (ZETIA) 10 Mg Tablet, 10 MG PO QDAY, TAB 10/22/16 Raloxifene Hcl (EVISTA) 60 Mg Tablet, 60 MG PO QDAY 10/22/16 Multivitamins (Multivitamin) 1 Tab Tablet, 1 TAB PO DAILY 10/11/11 Aspirin (Aspirin) 81 Mg Tablet., 81 MG PO DAILY, 0 Refills 03/09/09 Zolpidem Tartrate (Ambien) 5 Mg Tab, 5 MG PO QHS PRN, 0 Refills 03/09/09 Discontinued Reported Medications Levothyroxine Sodium (Synthroid) 25 Mcg Tablet, 88 MCG PO QDAY, 0 Refills 03/09/09 Discontinued Scripts Docusate Sodium (DOCUSATE SODIUM) 100 Mg Capsule, 1 CAP PO BID, #30 CAPSULE 0 Refills Prov:DOUG RUBIN MD 11/22/16 Follow up Referrals: General Surgery - 10/25/18 @ Surgery, General with DOUG RUBIN MD You have a follow up appointment scheduled with Dr. Rubin on 10/25/18, at 10:30am. Diet: Regular Activity: As Tolerated Special Instructions: You may shower as desired but don't immerse the incisions for 2 weeks. Leave the incisions open to air but leave the steristrips in place until they fall off on their own. Problem Qualifiers (1) Cholecystitis, acute with cholelithiasis: Biliary obstruction: without biliary obstruction Qualified Codes: K80.00 - Calculus of gallbladder with acute cholecystitis without obstruction DOUG RUBIN MD Oct 12, 2018 08:37
[2018-10-12] MEDS ORDERED: MAGNESIUM OXIDE 500 MG PO SCH (09:00)
[2018-10-12] MEDS: ASPIRIN 81 MG ENTERIC COATED PO SCH (09:17)
[2018-10-12] MEDS: MULTIVITAMINS TAB PO SCH (09:17)
[2018-10-12] MEDS: EZETIMIBE 10 MG TAB PO SCH (09:17)
[2018-10-12] MEDS: FAMOTIDINE 20 MG TAB PO SCH (09:17)
[2018-10-12] MEDS: DOCUSATE SODIUM 100 MG CAP PO SCH (09:18)
[2018-10-12] MEDS: MAGNESIUM OXIDE 500 MG PO SCH (09:18)
[2018-10-12] MEDS: CHOLECALCIFEROL 1000 UNIT TAB PO SCH (09:18)
[2018-10-12] MEDS: RALOXIFENE HCL 60 MG TAB PO SCH (09:29)
== END 2018-10-12 09:41 | disposition home or self-care (01) | DRG 419 ==
LOC: ER 09:19 → MED 12:04
PROVIDERS: ADMIT Surgery; ATTEND Surgery
PROC: 0FT44ZZ Resection of Gallbladder, Percutaneous Endoscopic Approach (ICD-10-PCS; principal; 2018-10-11)
PROC: BF111ZZ Fluoroscopy of Biliary and Pancreatic Ducts using Low Osmolar Contrast (ICD-10-PCS; 2018-10-11)
DX: K80.00 Calculus of gallbladder with acute cholecystitis without obstruction (principal); K66.0 Peritoneal adhesions (postprocedural) (postinfection); Z93.3 Colostomy status; E03.9 Hypothyroidism, unspecified; E78.5 Hyperlipidemia, unspecified; M85.80 Other specified disorders of bone density and structure, unspecified site; R01.1 Cardiac murmur, unspecified; R73.9 Hyperglycemia, unspecified; Z87.891 Personal history of nicotine dependence
CPT/HCPCS: 36415; 36416; 74177; 76000; 82040; 82247; 82248; 82310; 82374; 82435; 82565; 82947; 82948; 83519; 83690; 84075; 84132; 84155; 84295; 84450; 84460; 84520; 85025; 88304; 96365; 96375; 99285; J0330; J1100; J2270; J2405; J2543; J2704; J2795; J3010; J7030; J7040; Q9967